=== PATIENT | female | born 1990 | race Caucasian/White ===

== ENCOUNTER 2018-02-09 11:53 | Emergency (ER) | payer OTHER ==
[2018-02-09] MEDS ORDERED: D50W 25 GM/50 ML SYRINGE IV ONE (12:31)
--- NOTE | 2018-02-09 12:32 | RAD REPORT ---
EXAM DESCRIPTION: CT - Ct Stroke Brain Wo Cont - 02/09/2018 12:22 pm CLINICAL HISTORY: Right-sided numbness and tingling, history of 8 week CLINICAL HISTORY: CT head September 2012 TECHNIQUE: Axial 5 millimeter thick images of the head were obtained without IV contrast. All CT scans are performed using dose optimization technique as appropriate and may include automated exposure control or mA/KV adjustment according to patient size. FINDINGS: No intracranial hemorrhage, mass, or cerebral edema. No acute infarction identifiable. No cortical edema or sulcal effacement. Ventricles are normal. [place] matter-white matter differentiation is preserved. No globe or orbital content abnormality seen. No abnormality in the transverse or superior sagittal s inus on a noncontrast CT study. Major venous sinuses are similar to the 2013 study. Visualized portions of the mastoid air cells, paranasal sinuses, and orbits are unremarkable. Findings telephoned to Dr. Kunz 12:27 p.m. IMPRESSION: No CT evidence of acute intracranial process.
--- NOTE | 2018-02-09 12:43 | RAD REPORT ---
EXAM DESCRIPTION: RAD - Chest Single View - 02/09/2018 12:38 pm CLINICAL HISTORY: Code stroke chest film COMPARISON: September 2012 TECHNIQUE: AP portable chest image was obtained 1224 hours . FINDINGS: Lungs are clear. Heart and vasculature are normal. No measurable pleural effusion and no p neumothorax. No gross bony abnormality seen. No acute aortic findings suspected. IMPRESSION: No acute cardiopulmonary process. No significant change from comparison.
[2018-02-09 12:46] LABS: Absolute Lymphocytes (CBC) 2.2 K/uL (0.7-4.9); Absolute Monocytes 0.6 K/uL (0.1-1.3); Absolute Neutrophil 6.5 K/uL (1.8-8.0); Basophils % 0.3 % (0-1.3); Eosinophils % 0.4 % (0-4.4); Hematocrit 38.3 % (36.0-45.0); Lymphocytes % 23.4 % (15.3-44.8); MCH 30.5 pg (27.0-35.0); MCV 85.3 fL (80-100); MPV 9.7 fL (7.6-11.3); Monocytes % 6.2 % (3.3-12.3)
[2018-02-09 12:58] LABS: Protime INR 1.05
[2018-02-09 13:10] LABS: BUN Blood Urea Nitrogen 9 mg/dL (7-18); Bicarbonate 25 mmol/L (21-32); Glucose Level 88 mg/dL (74-106); Potassium 3.1 mmol/L (3.5-5.1); Sodium Level 138 mmol/L (136-145)
[2018-02-09] MEDS ORDERED: THIAMINE 200 MG/2 ML INJ ONE (13:37)
[2018-02-09] MEDS ORDERED: NA CHLORIDE 0.9% 1,000 ML ONE (13:37)
[2018-02-09 13:50] LABS: Urine Blood NEGATIVE (NEG); Urine Glucose TRACE (NEG); Urine Protein NEGATIVE (NEG)
--- NOTE | 2018-02-09 14:17 | RAD REPORT ---
EXAM DESCRIPTION: MRI - Brain Wo Cont - 02/09/2018 2:10 pm CLINICAL HISTORY: Left arm numbness COMPARISON: 02/10/[address] TECHNIQUE: Axial, sagittal, and coronal magnetic images of the brain were obtained. Contrast was not requested FINDINGS: No abnormal signal is present within the brain. Diffusion-weighted/ADC mapping does not reveal evidence of acute infarction. The ventricles are normal caliber. An extra-axial fluid collection is not present The sinuses and mastoids are clear. IMPRESSION: Unremarkable unenhanced brain MRI
--- NOTE | 2018-02-09 14:35 | ER ---
Nurse's Notes [facility] Name: Jimi Rivera Age: 27 yrs Sex: Female : 1990 Arrival Date: 02/09/2018 Time: 11:55 Bed 5 Private MD: Diagnosis: related conditions, unspecified, first trimester;Hypoglycemia, unspecified;Hypokalemia Presentation: 02/09 12:06 Presenting complaint: Patient states: left arm numbness and numbness to left side of aa5 face. Pt states "the first thing I noticed was that I was seeing brightness with my right eye and when I tried to write I couldn't think of the letters to write them down". Pt reports being 8 weeks . No arm drift noted in triage, microbiological lab technician equal and strong, no facial droop noted, pupils PERRLA. Transition of care: patient was not received from another setting of care. Onset of symptoms was February 09, 2018 at 10:45. Risk Assessment: Do you want to hurt yourself or someone else? Patient reports no desire to harm self or others. Initial Sepsis Screen: Does the patient meet any 2 criteria? No. Patient's initial sepsis screen is negative. Does the patient have a suspected source of infection? No. Patient's initial sepsis screen is negative. Care prior to arrival: None. 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 - Social history:: Smoking status: Patient/guardian denies using tobacco. - Ebola Screening: : No symptoms or risks identified at this time. Screenin:37 Abuse screen: Denies threats or abuse. Denies injuries from another. Nutritional hb screening: No deficits noted. Tuberculosis screening: No symptoms or risk factors identified. Fall Risk Total Levy Fall Scale indicates Low Risk Score (25-44 pts). Fall prevention measures have been instituted. Side Rails Up X 2 Frequent Obs/Assesments occuring As available Patient and Family Educated on Fall Prevention Program and strategies. Assessment: 12:14 Reassessment: Pt to CT. hb 12:14 Reassessment: Code Stroke called. hb 12:24 Reassessment: Pt returned from CT. hb 12:25 Reassessment: EKG at bedside. hb 12:26 Reassessment: Dr. Kunz at bedside. hb 12:27 Reassessment: Accucheck 44, Dr. Kunz notified at bedside. hb 12:28 Reassessment: CT negative. iw 12:28 Reassessment: 05/20 amp dextrose administered as ordered. hb 12:30 Reassessment: labs sent with purple code stroke stickers. hb 12:31 General: Appears in no apparent distress. Behavior is cooperative, anxious. Pain: hb Denies pain. Neuro: Level of Consciousness is awake, alert, obeys commands, Oriented to person, place, time, situation, Radiology Resident are equal bilaterally Moves all extremities. Gait is steady, Speech is normal, Facial symmetry appears normal, Pupils are PERRLA, Intact Reports aphasia PURCHASER. Cardiovascular: Heart tones S1 S2 present Capillary refill < 3 seconds Patient's skin is warm and dry. Respiratory: Airway is patent Trachea midline Respiratory effort is even, unlabored, Respiratory pattern is regular, symmetrical, Breath sounds are clear bilaterally. GI: No signs and/or symptoms were reported involving the gastrointestinal system. : No signs and/or symptoms were reported regarding the genitourinary system. EENT: No signs and/or symptoms were reported regarding the EENT system. Derm: Skin is intact, is healthy with good turgor, Skin is pink, warm \\T\\ dry. Musculoskeletal: No signs and/or symptoms reported regarding the musculoskeletal system. 12:55 Reassessment: Patient appears in no apparent distress at this time. Patient and/or tw2 family updated on plan of care and expected duration. Pain level reassessed. Patient is alert, oriented x 3, equal unlabored respirations, skin warm/dry/pink. 13:45 Reassessment: Patient appears in no apparent distress at this time. Patient and/or hb family updated on plan of care and expected duration. Pain level reassessed. Patient is alert, oriented x 3, equal unlabored respirations, skin warm/dry/pink. Vital Signs: 12:09 BP 123 / 80; Pulse 108; Resp 16 S; Temp 99.4(TE); Pulse Ox 100% on R/A; Weight 65.77 kg aa5 (R); Height 5 ft. 2 in. (157.48 cm) (R); Pain 0/10; 12:55 BP 117 / 78; Pulse 92; Resp 16; Pulse Ox 100% on R/A; tw2 13:50 BP 105 / 73; Pulse 88; Resp 15; Pulse Ox 100% on R/A; hb 12:09 Body Mass Index 26.52 (65.77 kg, 157.48 cm) aa5 NIH Stroke Scale Scores: 12:38 NIHSS Score: 0 hb 13:20 NIHSS Score: 0 aicha 14:35 NIHSS Score: 0 aicha ED Course: 11:55 Patient arrived in ED. mr 12:09 Triage completed. aa5 12:09 Arm band placed on. aa5 12:15 Jordon Kunz MD is Attending Physician. aicha 12:24 CT Stroke Brain w/o Contrast In Process Unspecified. EDMS 12:27 Initial lab(s) drawn, by me, sent to lab. Inserted saline lock: 20 gauge in left 3 antecubital area, using aseptic technique. Blood collected. 12:29 Mari Silva, RN is Primary Nurse. hb 12:31 Patient has correct armband on for positive identification. Placed in gown. Bed in low hb position. Call light in reach. Side rails up X 1. child monitor on. Pulse ox on. NIBP on. 12:36 X-ray completed. Portable x-ray completed in exam room. Patient tolerated procedure sw well. 12:38 Stroke CXR 1 View In Process Unspecified. EDMS 12:43 Urine collected: clean catch specimen, cloudy, jojo colored. dh3 12:48 Patient moved to MRI with customer account technician at this time. tw2 13:19 Radiology exam delayed due to lab results not completed at this time. (HCG). aa4 13:58 Patient moved to MRI via wheelchair. ka 13:58 ABO Rh and HCGQ drawn by me and sent to lab. dh3 14:02 Brain Wo Cont In Process Unspecified. EDMS 14:34 Emma Weiner MD is Referral Physician. aicha 14:36 US Transvaginal Ob In Process Unspecified. EDMS 15:10 No provider procedures requiring assistance completed. IV discontinued, intact, hb bleeding controlled, No redness/swelling at site. Pressure dressing applied. Administered Medications: 12:28 Drug: D50W 25 ml Route: IVP; Site: left antecubital; hb 13:00 Follow up: Response: No adverse reaction hb 12:40 Drug: NS 0.9% 1000 ml Route: IV; Rate: 1 bolus; Site: left antecubital; hb 13:45 Follow up: Response: No adverse reaction; IV Status: Completed infusion hb 12:40 Drug: foLIC Acid 1 mg Route: IVPB; Site: left antecubital; hb 12:45 Follow up: Response: No adverse reaction; IV Status: Completed infusion hb Point of Care Testing: Blood Glucose: 12:51 Blood Glucose: 120 mg/dL; tw2 Ranges: Outcome: 14:34 Discharge ordered by MD. aicha 15:20 Discharged to home ambulatory, with significant other. hb 15:20 Condition: stable 15:20 Discharge instructions given to patient, Instructed on discharge instructions, follow up and referral plans. medication usage, Demonstrated understanding of instructions, follow-up care, medications, Prescriptions given X 1. 15:30 Patient left the ED. tw2 NIH Stroke Scale - NIH Stroke Score Date: 02/09/2018 Time: 12:38 Total Score = 0 1a. Level of Consciousness (LOC) - 0(Alert) 1b. Level of Consciousness (LOC) (Year \\T\\ Age) - 0(Both) 1c. LOC Commands (Open \\T\\ Closes Eyes/Optic Fibre Drawer) - 0(Both) 2. Best Gaze (Lateral Gaze Paresis) - 0(Normal) 3. Visual Field Loss - 0(No visual loss) 4. Facial Palsy - 0(Normal) 5a. Left Arm: Motor (10-second hold) - 0(No drift) 5b. Right Arm: Motor (10-second hold) - 0(No drift) 6a. Left Leg: Motor (5-second hold - always test supine) - 0(No drift) 6b. Right Leg: Motor (5-second hold - always test supine) - 0(No drift) 7. Limb Ataxia (finger/nose \\T\\ heel/kim - test with eyes open) - 0(Absent) 8. Sensory Loss (pinprick arms/legs/face) - 0(Normal) 9. Best Language: Aphasia (description/naming/reading) - 0(No aphasia) 10. Dysarthria (speech clarity - read or repeat words) - 0(Normal) 11. Extinction and Inattention (visual/tactile/auditory/spatial/personal) - 0(No abnormality) Initials: NIH Stroke Scale - NIH Stroke Score Date: 02/09/2018 Time: 13:20 Total Score = 0 1a. Level of Consciousness (LOC) - 0(Alert) 1b. Level of Consciousness (LOC) (Year \\T\\ Age) - 0(Both) 1c. LOC Commands (Open \\T\\ Closes Eyes/Optic Fibre Drawer) - 0(Both) 2. Best Gaze (Lateral Gaze Paresis) - 0(Normal) 3. Visual Field Loss - 0(No visual loss) 4. Facial Palsy - 0(Normal) 5a. Left Arm: Motor (10-second hold) - 0(No drift) 5b. Right Arm: Motor (10-second hold) - 0(No drift) 6a. Left Leg: Motor (5-second hold - always test supine) - 0(No drift) 6b. Right Leg: Motor (5-second hold - always test supine) - 0(No drift) 7. Limb Ataxia (finger/nose \\T\\ heel/kim - test with eyes open) - 0(Absent) 8. Sensory Loss (pinprick arms/legs/face) - 0(Normal) 9. Best Language: Aphasia (description/naming/reading) - 0(No aphasia) 10. Dysarthria (speech clarity - read or repeat words) - 0(Normal) 11. Extinction and Inattention (visual/tactile/auditory/spatial/personal) - 0(No abnormality) Initials: [facility] NIH Stroke Scale - NIH Stroke Score Date: 02/09/2018 Time: 14:35 Total Score = 0 1a. Level of Consciousness (LOC) - 0(Alert) 1b. Level of Consciousness (LOC) (Year \\T\\ Age) - 0(Both) 1c. LOC Commands (Open \\T\\ Closes Eyes/Optic Fibre Drawer) - 0(Both) 2. Best Gaze (Lateral Gaze Paresis) - 0(Normal) 3. Visual Field Loss - 0(No visual loss) 4. Facial Palsy - 0(Normal) 5a. Left Arm: Motor (10-second hold) - 0(No drift) 5b. Right Arm: Motor (10-second hold) - 0(No drift) 6a. Left Leg: Motor (5-second hold - always test supine) - 0(No drift) 6b. Right Leg: Motor (5-second hold - always test supine) - 0(No drift) 7. Limb Ataxia (finger/nose \\T\\ heel/kim - test with eyes open) - 0(Absent) 8. Sensory Loss (pinprick arms/legs/face) - 0(Normal) 9. Best Language: Aphasia (description/naming/reading) - 0(No aphasia) 10. Dysarthria (speech clarity - read or repeat words) - 0(Normal) 11. Extinction and Inattention (visual/tactile/auditory/spatial/personal) - 0(No abnormality) Initials: aicha Signatures: Dispatcher [employer] EDMS Jordon Kunz MD MD cha Rivera, Maria mr Mary Ann Vidales, RN JAMILA Monica Molina aa4 Mariaa Saavedra RN RN aa5 Traci Sams Katelyn ka Baxter, Heather, RN RN hb Wise, Tara, RN RN 2 Esther Guzman [facility] Corrections: (The following items were deleted from the chart) 12:34 12:24 Reassessment: Pt to CT hb hb 12:37 12:22 Reassessment: Pt to CT hb hb
--- NOTE | 2018-02-09 14:35 | EDPHYS ---
Physician Documentation [facility] Name: Jimi Rivera Age: 27 yrs Sex: Female : 1990 Arrival Date: 02/09/2018 Time: 11:55 Bed 5 Private MD: ED Physician Jordon Kunz HPI: 02/09 12:41 This 27 yrs old Female presents to ER via Ambulatory with complaints of aicha Vision Problem, Confusion, Arm weakness. 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 - Social history:: Smoking status: Patient/guardian denies using tobacco. - Ebola Screening: : No symptoms or risks identified at this time. ROS: 12:42 Constitutional: Negative for fever, chills, and weight loss, Eyes: Negative for injury, aicha pain, redness, and discharge, ENT: Negative for injury, pain, and discharge, Neck: Negative for injury, pain, and swelling, Cardiovascular: Negative for chest pain, palpitations, and edema, Respiratory: Negative for shortness of breath, cough, wheezing, and pleuritic chest pain, Abdomen/GI: Negative for abdominal pain, nausea, vomiting, diarrhea, and constipation, Back: Negative for injury and pain, : Negative for injury, bleeding, discharge, and swelling, MS/Extremity: Negative for injury and deformity, Skin: Negative for injury, rash, and discoloration, Psych: Negative for depression, anxiety, suicide ideation, homicidal ideation, and hallucinations, Allergy/Immunology: Negative for hives, rash, and allergies, Endocrine: Negative for neck swelling, polydipsia, polyuria, polyphagia, and marked weight changes, Hematologic/Lymphatic: Negative for swollen nodes, abnormal bleeding, and unusual bruising. 12:42 Neuro: Positive for altered mental status, dizziness, tingling, of the right arm. Exam: 12:42 Radiologist reports: neg, nad, dr schneider [facility] 12:42 Constitutional: This is a well developed, well nourished patient who is awake, alert, and in no acute distress. Head/Face: Normocephalic, atraumatic. Eyes: Pupils equal round and reactive to light, extra-ocular motions intact. Lids and lashes normal. Conjunctiva and sclera are non-icteric and not injected. Cornea within normal limits. Periorbital areas with no swelling, redness, or edema. ENT: Nares patent. No nasal discharge, no septal abnormalities noted. Tympanic membranes are normal and external auditory canals are clear. Oropharynx with no redness, swelling, or masses, exudates, or evidence of obstruction, uvula midline. Mucous membranes moist. Neck: Trachea midline, no thyromegaly or masses palpated, and no cervical lymphadenopathy. Supple, full range of motion without nuchal rigidity, or vertebral point tenderness. No Meningismus. Chest/axilla: Normal chest wall appearance and motion. Nontender with no deformity. No lesions are appreciated. Cardiovascular: Regular rate and rhythm with a normal S1 and S2. No gallops, murmurs, or rubs. Normal PMI, no JVD. No pulse deficits. Respiratory: Lungs have equal breath sounds bilaterally, clear to auscultation and percussion. No rales, rhonchi or wheezes noted. No increased work of breathing, no retractions or nasal flaring. Abdomen/GI: Soft, non-tender, with normal bowel sounds. No distension or tympany. No guarding or rebound. No evidence of tenderness throughout. Back: No spinal tenderness. No costovertebral tenderness. Full range of motion. Female : Normal external genitalia. Skin: Warm, dry with normal turgor. Normal color with no rashes, no lesions, and no evidence of cellulitis. MS/ Extremity: Pulses equal, no cyanosis. Neurovascular intact. Full, normal range of motion. Psych: Awake, alert, with orientation to person, place and time. Behavior, mood, and affect are within normal limits. 12:42 Neuro: Orientation: is normal, appropriate for stated age, no acute changes, Mentation: is normal, appropriate for stated age, no acute changes, Memory: is normal, appropriate for stated age, no acute changes, Cranial nerves: grossly normal, is grossly normal based on the patient's age, no acute changes, Cerebellar function: is grossly normal, is grossly normal based on the patient's age, no acute changes, Motor: is normal, is grossly normal based on the patient's age, no acute changes, moves all fours, strength is normal, strength is 5/5 in all extremities, Sensation: is normal, no obvious gross deficits, appropriate no acute changes, Gait: is steady, appropriate for age, Deep tendon reflexes are 2+ (normal) in the bilateral brachioradialis, bicep, tricep and patellar and Achilles tendons, seizure activity, is not displayed by the patient. 14:50 : dr satish james, discussed usg findings. [facility] Vital Signs: 12:09 BP 123 / 80; Pulse 108; Resp 16 S; Temp 99.4(TE); Pulse Ox 100% on R/A; Weight 65.77 kg aa5 (R); Height 5 ft. 2 in. (157.48 cm) (R); Pain 0/10; 12:55 BP 117 / 78; Pulse 92; Resp 16; Pulse Ox 100% on R/A; tw2 13:50 BP 105 / 73; Pulse 88; Resp 15; Pulse Ox 100% on R/A; hb 12:09 Body Mass Index 26.52 (65.77 kg, 157.48 cm) aa5 NIH Stroke Scale Scores: 12:38 NIHSS Score: 0 hb 13:20 NIHSS Score: 0 aicha 14:35 NIHSS Score: 0 aicha MDM: 12:15 Patient medically screened. [facility] 12:44 Data reviewed: vital signs, nurses notes, lab test result(s), EKG, radiologic studies, [facility] CT scan, plain films. 02/09 12:22 Order name: Basic Metabolic Panel; Complete Time: 14:14 02/09 12:22 Order name: CBC with Diff; Complete Time: 14:14 02/09 12:22 Order name: Protime (+inr); Complete Time: 14:14 02/09 12:22 Order name: Ptt, Activated; Complete Time: 14:14 02/09 12:29 Order name: CRP; Complete Time: 14:14 [facility] 02/09 12:29 Order name: Sed Rate; Complete Time: 14:14 [facility] 02/09 12:17 Order name: CT Stroke Brain w/o Contrast; Complete Time: 14:14 02/09 12:29 Order name: Urine Culture [facility] 02/09 12:53 Order name: Glucose, Ancillary Testing; Complete Time: 14:14 EDMS 02/09 12:53 Order name: Glucose, Ancillary Testing; Complete Time: 14:14 EDOR 02/09 12:56 Order name: Urine Dipstick--Ancillary (enter results); Complete Time: 14:14 02/09 12:56 Order name: Urine --Ancillary (enter results); Complete Time: 14:14 bd 02/09 13:12 Order name: Quantitative Hcg; Complete Time: 14:41 [facility] 02/09 13:12 Order name: Abo/rh Typing [facility] 02/09 12:22 Order name: Stroke CXR 1 View; Complete Time: 14:14 iw 02/09 12:22 Order name: EKG; Complete Time: 12:23 iw 02/09 12:22 Order name: Accucheck; Complete Time: 12: 02/09 12:22 Order name: Cardiac monitoring; Complete Time: 12: 02/09 12:22 Order name: EKG - Nurse/Tech; Complete Time: 12: 02/09 12:22 Order name: IV Saline Lock; Complete Time: 12: 02/09 12:22 Order name: Labs collected and sent; Complete Time: 12: 02/09 12:22 Order name: NPO; Complete Time: 12: 02/09 12:22 Order name: O2 Per Protocol; Complete Time: 12: 02/09 13:12 Order name: US Transvaginal Ob [facility] 02/09 14:02 Order name: Brain Wo Cont; Complete Time: 14:33 EDOR 02/09 12:22 Order name: O2 Sat Monitoring; Complete Time: 12: 02/09 12:22 Order name: Stroke Swallow Screen; Complete Time: 13:32 02/09 12:29 Order name: Urine Dipstick-Ancillary (obtain specimen); Complete Time: 12:43 [facility] Administered Medications: 12:28 Drug: D50W 25 ml Route: IVP; Site: left antecubital; hb 13:00 Follow up: Response: No adverse reaction hb 12:40 Drug: NS 0.9% 1000 ml Route: IV; Rate: 1 bolus; Site: left antecubital; hb 13:45 Follow up: Response: No adverse reaction; IV Status: Completed infusion hb 12:40 Drug: foLIC Acid 1 mg Route: IVPB; Site: left antecubital; hb 12:45 Follow up: Response: No adverse reaction; IV Status: Completed infusion hb Point of Care Testing: Blood Glucose: 12:51 Blood Glucose: 120 mg/dL; tw2 Ranges: Critical Glucose Levels:Adult <50 mg/dl or >400 mg/dl <40 mg/dl or >180 mg/dl Disposition: 02/09/18 14:34 Discharged to Home. Impression: related conditions, unspecified, first trimester, Hypoglycemia, unspecified, Hypokalemia. - Condition is Stable. - Discharge Instructions: Potassium Content of Foods, Hypoglycemia, First Trimester of , [id number], First Trimester of , Pelvic Rest, Hypoglycemia, [id number]. - Prescriptions for Vitamin 27- 0.8 mg Oral Tablet - take 1 tablet by ORAL route once daily; 30 tablet. - Medication Reconciliation Form, Thank You Letter, Antibiotic Education, Prescription Opioid Use form. - Follow up: Mini Rekhi; When: 2 - 3 days; Reason: Recheck today's complaints, Continuance of care, Re-evaluation by your physician. - Problem is new. - Symptoms have improved. NIH Stroke Scale - NIH Stroke Score Date: 02/09/2018 Time: 12:38 Total Score = 0 1a. Level of Consciousness (LOC) - 0(Alert) 1b. Level of Consciousness (LOC) (Year \T\ Age) - 0(Both) 1c. LOC Commands (Open \T\ Closes Eyes/Shuttleless Loom Weaver) - 0(Both) 2. Best Gaze (Lateral Gaze Paresis) - 0(Normal) 3. Visual Field Loss - 0(No visual loss) 4. Facial Palsy - 0(Normal) 5a. Left Arm: Motor (10-second hold) - 0(No drift) 5b. Right Arm: Motor (10-second hold) - 0(No drift) 6a. Left Leg: Motor (5-second hold - always test supine) - 0(No drift) 6b. Right Leg: Motor (5-second hold - always test supine) - 0(No drift) 7. Limb Ataxia (finger/nose \T\ heel/kim - test with eyes open) - 0(Absent) 8. Sensory Loss (pinprick arms/legs/face) - 0(Normal) 9. Best Language: Aphasia (description/naming/reading) - 0(No aphasia) 10. Dysarthria (speech clarity - read or repeat words) - 0(Normal) 11. Extinction and Inattention (visual/tactile/auditory/spatial/personal) - 0(No abnormality) Initials: NIH Stroke Scale - NIH Stroke Score Date: 02/09/2018 Time: 13:20 Total Score = 0 1a. Level of Consciousness (LOC) - 0(Alert) 1b. Level of Consciousness (LOC) (Year \T\ Age) - 0(Both) 1c. LOC Commands (Open \T\ Closes Eyes/Shuttleless Loom Weaver) - 0(Both) 2. Best Gaze (Lateral Gaze Paresis) - 0(Normal) 3. Visual Field Loss - 0(No visual loss) 4. Facial Palsy - 0(Normal) 5a. Left Arm: Motor (10-second hold) - 0(No drift) 5b. Right Arm: Motor (10-second hold) - 0(No drift) 6a. Left Leg: Motor (5-second hold - always test supine) - 0(No drift) 6b. Right Leg: Motor (5-second hold - always test supine) - 0(No drift) 7. Limb Ataxia (finger/nose \T\ heel/kim - test with eyes open) - 0(Absent) 8. Sensory Loss (pinprick arms/legs/face) - 0(Normal) 9. Best Language: Aphasia (description/naming/reading) - 0(No aphasia) 10. Dysarthria (speech clarity - read or repeat words) - 0(Normal) 11. Extinction and Inattention (visual/tactile/auditory/spatial/personal) - 0(No abnormality) Initials: [facility] NIH Stroke Scale - NIH Stroke Score Date: 02/09/2018 Time: 14:35 Total Score = 0 1a. Level of Consciousness (LOC) - 0(Alert) 1b. Level of Consciousness (LOC) (Year \T\ Age) - 0(Both) 1c. LOC Commands (Open \T\ Closes Eyes/Shuttleless Loom Weaver) - 0(Both) 2. Best Gaze (Lateral Gaze Paresis) - 0(Normal) 3. Visual Field Loss - 0(No visual loss) 4. Facial Palsy - 0(Normal) 5a. Left Arm: Motor (10-second hold) - 0(No drift) 5b. Right Arm: Motor (10-second hold) - 0(No drift) 6a. Left Leg: Motor (5-second hold - always test supine) - 0(No drift) 6b. Right Leg: Motor (5-second hold - always test supine) - 0(No drift) 7. Limb Ataxia (finger/nose \T\ heel/kim - test with eyes open) - 0(Absent) 8. Sensory Loss (pinprick arms/legs/face) - 0(Normal) 9. Best Language: Aphasia (description/naming/reading) - 0(No aphasia) 10. Dysarthria (speech clarity - read or repeat words) - 0(Normal) 11. Extinction and Inattention (visual/tactile/auditory/spatial/personal) - 0(No abnormality) Initials: aicha Signatures: Dispatcher [employer] [facility] Jordon Kunz MD MD cha Williams, Irene RN JAMILA iw Mariaa Saavedra RN RN aa5 Mari Silva RN RN Cheryl De Souza RN RN tw2 Corrections: (The following items were deleted from the chart) 14:01 12:30 MR STROKE PROTOCOL+MRI.RAD.BRZ ordered. [facility] 15:30 14:34 02/09/2018 14:34 Discharged to Home. Impression: related tw2 conditions, unspecified, first trimester; Hypoglycemia, unspecified; Hypokalemia. Condition is Stable. Discharge Instructions: Hypoglycemia, First Trimester of , [id number], First Trimester of , Hypoglycemia, [id number]. Prescriptions for Vitamin 27-0.8 mg Oral Tablet - take 1 tablet by ORAL route once daily; 30 tablet. and Forms are Medication Reconciliation Form, Thank You Letter, Antibiotic Education, Prescription Opioid Use. Follow up: Mini Rekhi; When: 2 - 3 days; Reason: Recheck today's complaints, Continuance of care, Re-evaluation by your physician. Problem is new. Symptoms have improved. aicha
--- NOTE | 2018-02-09 15:12 | RAD REPORT ---
EXAM DESCRIPTION: US - Transvaginal OB - 02/09/2018 2:36 pm CLINICAL HISTORY: with abdominal pain COMPARISON: None. FINDINGS: The uterus measures 9 x 6 x 7 centimeters. A gestational sac is present within the endome trium. Within this is a yolk sac and pole with a crown-rump length 1.9 centimeters. Cardiac act ivity 175 beats per minute. Small subchorionic bleeds are present. Largest measures 12 millimeters The ovaries are normal in size and echotexture. No significant free fluid is seen. IMPRESSION: Single live intrauterine with an estimated gestational age 8 weeks 3 days 07/2018 Small subchorionic bleeds
[2018-02-09 15:35] VITALS: TEMP 99.4; O2SAT 100
[2018-02-09 15:37] VITALS: BP 105/73
--- NOTE | 2018-02-09 15:40 | EKG ---
Test Date: 2018-02-09 Test Time: 12:27:37 Saw Sharpener: ELIU MEASUREMENT RESULTS: Intervals: Rate: 112 WI: 132 QRSD: 84 QT: 342 QTc: 466 [place]: P: 66 WI: 132 QRS: 55 T: 50 INTERPRETIVE STATEMENTS: Sinus tachycardia Otherwise normal ECG No previous ECG available for comparison Electronically Signed On 02-09-18 15:39:20 CDT by Juvencio Mcadams
== END 2018-02-09 15:30 | disposition home or self-care (01) ==
LOC: ER 11:53
DX: E16.2 Hypoglycemia, unspecified (principal); E87.6 Hypokalemia; Z3A.08 8 weeks gestation of pregnancy
CPT/HCPCS: 36415; 70450; 70551; 71045; 76817; 80048; 81003; 81025; 82962; 84702; 85025; 85610; 85652; 85730; 86140; 86900; 86901; 87086; 87088; 93005; 96361; 96374; 96375; 99285; J3411; J7030

== ENCOUNTER 2018-04-25 17:47 | Emergency (ER) | payer OTHER ==
--- NOTE | 2018-04-25 18:17 | ER ---
Nurse's Notes [facility] Name: Jimi Rivera Age: 28 yrs Sex: Female : 1990 Arrival Date: 04/25/2018 Time: 17:50 Bed 24 Private MD: Beau Sanchez Diagnosis: Nonobstructive reflux-associated chronic pyelonephritis Presentation: 04/25 17:53 Presenting complaint: Patient states: left hip pain started today. Urine started sv becoming blood tinged, c/o nausea and flank tenderness. Pt is 19 wks . Transition of care: patient was not received from another setting of care. Onset of symptoms was April 25, 2018. Care prior to arrival: None. 17:53 Method Of Arrival: Ambulatory sv 17:53 Acuity: JULIO 3 sv 18:00 Risk Assessment: Do you want to hurt yourself or someone else? Patient reports no ls4 desire to harm self or others. 18:00 Initial Sepsis Screen: Does the patient meet any 2 criteria? No. Patient's initial ls4 sepsis screen is negative. Does the patient have a suspected source of infection? No. Patient's initial sepsis screen is negative. Triage Assessment: 17:56 General: Appears in no apparent distress. uncomfortable, well developed, Behavior is sv calm, cooperative, appropriate for age. Pain: Complains of pain in posterior aspect of left lateral abdomen and anterior aspect of left lateral abdomen. Neuro: Level of Consciousness is awake, alert, obeys commands, Oriented to person, place, time, situation, Moves all extremities. Full function Gait is steady. Respiratory: Respiratory effort is even, unlabored, Respiratory pattern is regular, symmetrical. : Reports pain in left flank(s), with urination. LENS ENGRAVER: 18:31 currently ls4 Historical: - Allergies: 17:54 NKA; sv - PMHx: 17:54 Kidney stones; Migraines; RSD right leg; sv - PSHx: 17:54 knee scope; shoulder scope; Lithotripsy; sv - Immunization history:: Adult Immunizations unknown. - Social history:: Smoking status: Patient/guardian denies using tobacco, never smoked. - Ebola Screening: : No symptoms or risks identified at this time. Screenin:30 Abuse screen: Denies threats or abuse. Nutritional screening: No deficits noted. ls4 Tuberculosis screening: No symptoms or risk factors identified. Fall Risk None identified. Assessment: 18:29 General: Appears in no apparent distress. Pain: Complains of pain in abdomen and ls4 anterior aspect of left lateral abdomen and posterior aspect of left lateral abdomen Pain currently is 5 out of 10 on a pain scale. Neuro: No deficits noted. Cardiovascular: No deficits noted. Respiratory: No deficits noted. GI: No deficits noted. : Reports burning with urination. Derm: No deficits noted. Musculoskeletal: No deficits noted. Vital Signs: 17:54 BP 117 / 76; Pulse 81; Resp 20; Temp 98.3; Pulse Ox 99% ; Weight 70.31 kg; Height 5 ft. sv 2 in. (157.48 cm); 17:54 Body Mass Index 28.35 (70.31 kg, 157.48 cm) sv ED Course: 17:50 Patient arrived in ED. mr 17:51 Beau Sanchez MD is Private Physician. mr 17:54 Triage completed. sv 17:56 Arm band placed on. sv 17:59 [facility] nh 17:59 Jordon Kunz MD is Attending Physician. nh 18:00 Patient has correct armband on for positive identification. Bed in low position. Call ls4 light in reach. Side rails up X 1. 18:00 No provider procedures requiring assistance completed. Patient did not have IV access ls4 during this emergency room visit. 18:24 Louise Durbin, JAMILA is Primary Nurse. ls4 Administered Medications: No medications were administered Outcome: 18:17 Discharge ordered by MD. ut 18:30 Condition: stable ls4 18:32 Discharged to home ambulatory. ls4 18:32 Discharge instructions given to patient, Instructed on discharge instructions, follow up and referral plans. medication usage, Demonstrated understanding of instructions, follow-up care, medications. 18:33 Patient left the ED. ls4 Signatures: Linda Garcia RN RN Amalia Powell FNP [facility] Louise Durbin RN RN ls4 Corrections: (The following items were deleted from the chart) 17:56 17:53 Presenting complaint: Patient states: left hip pain started today. Urine started sv becoming blood tinged, nausea. sv 17:56 17:54 Pulse Ox 99%; Temp 98.3F; 70.31 kg; Height 5 ft. 2 in.; BMI: 28.3; sv sv 18:09 17:53 Presenting complaint: Patient states: left hip pain started today. Urine started sv becoming blood tinged, c/o nausea. Pt is 19 wks . sv
--- NOTE | 2018-04-25 18:17 | EDPHYS ---
Physician Documentation [facility] Name: Jimi Rivera Age: 28 yrs Sex: Female : 1990 Arrival Date: 04/25/2018 Time: 17:50 Bed 24 Private MD: Beau Sanchez ED Physician Jordon Kunz HPI: 04/25 18:11 This 28 yrs old Female presents to ER via Ambulatory with complaints of 19 nh wks , blood in urine, Flank Pain, Nausea. 18:11 Onset: The symptoms/episode began/occurred gradually. Associated signs and symptoms: nh Pertinent positives: abdominal pain. Modifying factors: The patient symptoms are alleviated by nothing, the patient symptoms are aggravated by nothing. The patient has not experienced similar symptoms in the past. The patient has not recently seen a physician. Patient reports left flank pain that come on somewhat suddenly with hematuria. ECONOMIC ADVISER: 18:31 currently ls4 Historical: - Allergies: 17:54 NKA; sv - PMHx: 17:54 Kidney stones; Migraines; RSD right leg; sv - PSHx: 17:54 knee scope; shoulder scope; Lithotripsy; sv - Immunization history:: Adult Immunizations unknown. - Social history:: Smoking status: Patient/guardian denies using tobacco, never smoked. - Ebola Screening: : No symptoms or risks identified at this time. ROS: 18:11 Constitutional: Negative for fever, chills, and weight loss, Eyes: Negative for injury, nh pain, redness, and discharge, ENT: Negative for injury, pain, and discharge, Neck: Negative for injury, pain, and swelling, Cardiovascular: Negative for chest pain, palpitations, and edema, Respiratory: Negative for shortness of breath, cough, wheezing, and pleuritic chest pain, Abdomen/GI: Negative for abdominal pain, nausea, vomiting, diarrhea, and constipation, Back: Negative for injury and pain, MS/Extremity: Negative for injury and deformity, Skin: Negative for injury, rash, and discoloration, Neuro: Negative for headache, weakness, numbness, tingling, and seizure, Psych: Negative for depression, anxiety, suicide ideation, homicidal ideation, and hallucinations, Allergy/Immunology: Negative for hives, rash, and allergies, Endocrine: Negative for neck swelling, polydipsia, polyuria, polyphagia, and marked weight changes, Hematologic/Lymphatic: Negative for swollen nodes, abnormal bleeding, and unusual bruising. 18:11 : Positive for urinary symptoms, flank pain, hematuria. Exam: 18:11 Constitutional: This is a well developed, well nourished patient who is awake, alert, nh and in no acute distress. Head/Face: Normocephalic, atraumatic. Eyes: Pupils equal round and reactive to light, extra-ocular motions intact. Lids and lashes normal. Conjunctiva and sclera are non-icteric and not injected. Cornea within normal limits. Periorbital areas with no swelling, redness, or edema. ENT: Nares patent. No nasal discharge, no septal abnormalities noted. Tympanic membranes are normal and external auditory canals are clear. Oropharynx with no redness, swelling, or masses, exudates, or evidence of obstruction, uvula midline. Mucous membranes moist. Neck: Trachea midline, no thyromegaly or masses palpated, and no cervical lymphadenopathy. Supple, full range of motion without nuchal rigidity, or vertebral point tenderness. No Meningismus. Chest/axilla: Normal chest wall appearance and motion. Nontender with no deformity. No lesions are appreciated. Cardiovascular: Regular rate and rhythm with a normal S1 and S2. No gallops, murmurs, or rubs. Normal PMI, no JVD. No pulse deficits. Respiratory: Lungs have equal breath sounds bilaterally, clear to auscultation and percussion. No rales, rhonchi or wheezes noted. No increased work of breathing, no retractions or nasal flaring. Abdomen/GI: Soft, non-tender, with normal bowel sounds. No distension or tympany. No guarding or rebound. No evidence of tenderness throughout. Skin: Warm, dry with normal turgor. Normal color with no rashes, no lesions, and no evidence of cellulitis. MS/ Extremity: Pulses equal, no cyanosis. Neurovascular intact. Full, normal range of motion. Neuro: Awake and alert, GCS 15, oriented to person, place, time, and situation. Cranial nerves II-XII grossly intact. Motor strength 5/5 in all extremities. Sensory grossly intact. Cerebellar exam normal. Normal gait. Psych: Awake, alert, with orientation to person, place and time. Behavior, mood, and affect are within normal limits. 18:11 Back: CVA tenderness, that is mild, is noted on the left. Vital Signs: 17:54 BP 117 / 76; Pulse 81; Resp 20; Temp 98.3; Pulse Ox 99% ; Weight 70.31 kg; Height 5 ft. sv 2 in. (157.48 cm); 17:54 Body Mass Index 28.35 (70.31 kg, 157.48 cm) sv MDM: 17:59 Patient medically screened. tn 18:11 Data reviewed: vital signs, nurses notes, lab test result(s), I have discussed the tn patient's presentation/case with the attending Emergency Department Physician; and as a result, I will discharge patient. Counseling: I had a detailed discussion with the patient and/or guardian regarding: lab results, the need for outpatient follow up, to return to the emergency department if symptoms worsen or persist or if there are any questions or concerns that arise at home. 04/25 18:05 Order name: Urine Dipstick--Ancillary (enter results) bd 04/25 18:05 Order name: Urine --Ancillary (enter results) bd Administered Medications: No medications were administered Disposition: 04/25/18 18:17 Discharged to Home. Impression: Nonobstructive reflux-associated chronic pyelonephritis. - Condition is Stable. - Discharge Instructions: Pyelonephritis, Adult. - Prescriptions for Macrobid 100 mg Oral Capsule - take 1 capsule by ORAL route every 12 hours for 10 days; 20 capsule. - Medication Reconciliation Form, Thank You Letter, Antibiotic Education, Prescription Opioid Use form. - Follow up: Private Physician; When: 1 - 2 days; Reason: Recheck today's complaints. - Problem is new. - Symptoms are unchanged. Addendum: 04/27/2018 06:29 Co-signature as Attending Physician, Jordon Kunz MD I agree with the assessment and c samson plan of care. Signatures: Dispatcher [employer] Linda Strickland, Jordon Young RN, MD MD cha Cronk, Niki, CREWMAN ARMOURED PERSONNEL CARRIER M113 CREWMAN ARMOURED PERSONNEL CARRIER M113 tn Louise Durbin RN RN ls4 Corrections: (The following items were deleted from the chart) 04/25 18:33 18:17 04/25/2018 18:17 Discharged to Home. Impression: Nonobstructive reflux-associated ls4 chronic pyelonephritis. Condition is Stable. Forms are Medication Reconciliation Form, Thank You Letter, Antibiotic Education, Prescription Opioid Use. Follow up: Private Physician; When: 1 - 2 days; Reason: Recheck today's complaints. Problem is new. Symptoms are unchanged. tn 18:33 18:33 04/25/2018 18:17 Discharged to Home. Impression: Nonobstructive reflux-associated ls4 chronic pyelonephritis. Condition is Stable. Discharge Instructions: Pyelonephritis, Adult. Prescriptions for Macrobid 100 mg Oral Capsule - take 1 capsule by ORAL route every 12 hours for 10 days; 20 capsule. and Forms are Medication Reconciliation Form, Thank You Letter, Antibiotic Education, Prescription Opioid Use. Follow up: Private Physician; When: 1 - 2 days; Reason: Recheck today's complaints. Problem is new. Symptoms are unchanged. ls4
[2018-04-25 18:38] VITALS: BP 117/76; TEMP 98.3; O2SAT 99
[2018-04-25 19:25] LABS: Urine Blood 2+ (NEG); Urine Glucose NEGATIVE (NEG); Urine Protein NEGATIVE (NEG)
== END 2018-04-25 18:33 | disposition home or self-care (01) ==
LOC: ER 17:47
DX: O23.02 Infections of kidney in pregnancy, second trimester (principal); N11.0 Nonobstructive reflux-associated chronic pyelonephritis; Z3A.19 19 weeks gestation of pregnancy
CPT/HCPCS: 81003; 81025; 99281

== ENCOUNTER 2018-04-26 09:03 | Emergency (ER) | payer OTHER ==
[2018-04-26] MEDS ORDERED: MORPHINE 2 MG/ML SYR ONE (09:54)
[2018-04-26] MEDS ORDERED: ONDANSETRON 4 MG/2 ML VIAL ONE (09:54)
[2018-04-26] MEDS ORDERED: NA CHLORIDE 0.9% 1,000 ML ONE (09:54)
[2018-04-26 10:07] LABS: Absolute Lymphocytes (CBC) 0.9 K/uL (0.7-4.9); Absolute Monocytes 0.4 K/uL (0.1-1.3); Absolute Neutrophil 10.6 K/uL (1.8-8.0); Eosinophils % 0.3 % (0-4.4); Hematocrit 37.7 % (36.0-45.0); Lymphocytes % 7.5 % (15.3-44.8); MCH 31.7 pg (27.0-35.0); MCV 88.5 fL (80-100); MPV 9.5 fL (7.6-11.3); Monocytes % 3.7 % (3.3-12.3); RBC Red Blood Cell Count 4.26 M/uL (3.86-4.86)
[2018-04-26] MEDS ORDERED: CEFTRIAXONE/SWI 1gm 1 GM/10 ML SYR ONE (10:13)
[2018-04-26 10:24] LABS: BUN Blood Urea Nitrogen 9 mg/dL (7-18); Bicarbonate 24 mmol/L (21-32); Glucose Level 91 mg/dL (74-106); Potassium 3.3 mmol/L (3.5-5.1); Sodium Level 140 mmol/L (136-145)
[2018-04-26 10:37] LABS: Platelet Estimate ADEQ; Urine White Blood Cell Casts OK
[2018-04-26 10:38] LABS: Blood Morphology Comment NOT SEEN (NOT SEEN)
--- NOTE | 2018-04-26 10:55 | RAD REPORT ---
EXAM DESCRIPTION: US - Renal Ultrasound-Limited - 04/26/2018 10:23 am CLINICAL HISTORY: PAIN COMPARISON: Abdomen Exam Limited dated 03/14/2017 FINDINGS: Ultrasound of only the left kidney was requested, limiting study. The left kidney measures 11.8 x 5.3 x 6.1 cm. No hydronephrosis, focal mass or perinephric fluid. The urinary bladder is incompletely distended without gross abnormality seen. IMPRESSION: Unremarkable left renal sonogram.
--- NOTE | 2018-04-26 11:24 | EDPHYS ---
Physician Documentation [facility] Name: Jimi Rivera Age: 28 yrs Sex: Female : 1990 Arrival Date: 04/26/2018 Time: 09:05 Bed 16 Private MD: Beau Sanchez ED Physician Jordon Kunz HPI: 04/26 09:38 This 28 yrs old Female presents to ER via Ambulatory with complaints of aicha Vomiting - Pyelonephritis. 09:38 The patient presents to the emergency department with nausea, vomiting, that is aicha continuous. Onset: The symptoms/episode began/occurred last night. Possible causes: unknown, . The symptoms are aggravated by nothing. The symptoms are alleviated by nothing. Associated signs and symptoms: The patient has no apparent associated signs or symptoms. Severity of symptoms: At their worst the symptoms were mild in the emergency department the symptoms are unchanged. The patient has not experienced similar symptoms in the past. Historical: - Allergies: 09:19 NKA; ss - PMHx: 09:19 Kidney stones; Migraines; RSD right leg; ss - PSHx: 09:19 knee scope; shoulder scope; Lithotripsy; ss - Immunization history:: Adult Immunizations up to date. - Social history:: Smoking status: Patient/guardian denies using tobacco. - Ebola Screening: : Patient denies exposure to infectious person Patient denies travel to an Ebola-affected area in the 21 days before illness onset. ROS: 09:39 Constitutional: Negative for fever, chills, and weight loss, Eyes: Negative for injury, aicha pain, redness, and discharge, ENT: Negative for injury, pain, and discharge, Neck: Negative for injury, pain, and swelling, Cardiovascular: Negative for chest pain, palpitations, and edema, Respiratory: Negative for shortness of breath, cough, wheezing, and pleuritic chest pain, : Negative for injury, bleeding, discharge, and swelling, MS/Extremity: Negative for injury and deformity, Skin: Negative for injury, rash, and discoloration, Neuro: Negative for headache, weakness, numbness, tingling, and seizure, Psych: Negative for depression, anxiety, suicide ideation, homicidal ideation, and hallucinations, Allergy/Immunology: Negative for hives, rash, and allergies, Endocrine: Negative for neck swelling, polydipsia, polyuria, polyphagia, and marked weight changes. 09:39 Abdomen/GI: Positive for nausea and vomiting, abdominal distension. 09:39 Back: Positive for flank pain, on the left. Exam: 09:39 Constitutional: This is a well developed, well nourished patient who is awake, alert, aicha and in no acute distress. Head/Face: Normocephalic, atraumatic. Eyes: Pupils equal round and reactive to light, extra-ocular motions intact. Lids and lashes normal. Conjunctiva and sclera are non-icteric and not injected. Cornea within normal limits. Periorbital areas with no swelling, redness, or edema. ENT: Nares patent. No nasal discharge, no septal abnormalities noted. Tympanic membranes are normal and external auditory canals are clear. Oropharynx with no redness, swelling, or masses, exudates, or evidence of obstruction, uvula midline. Mucous membranes moist. Neck: Trachea midline, no thyromegaly or masses palpated, and no cervical lymphadenopathy. Supple, full range of motion without nuchal rigidity, or vertebral point tenderness. No Meningismus. Chest/axilla: Normal chest wall appearance and motion. Nontender with no deformity. No lesions are appreciated. Cardiovascular: Regular rate and rhythm with a normal S1 and S2. No gallops, murmurs, or rubs. Normal PMI, no JVD. No pulse deficits. Respiratory: Lungs have equal breath sounds bilaterally, clear to auscultation and percussion. No rales, rhonchi or wheezes noted. No increased work of breathing, no retractions or nasal flaring. Back: No spinal tenderness. No costovertebral tenderness. Full range of motion. Skin: Warm, dry with normal turgor. Normal color with no rashes, no lesions, and no evidence of cellulitis. MS/ Extremity: Pulses equal, no cyanosis. Neurovascular intact. Full, normal range of motion. Neuro: Awake and alert, GCS 15, oriented to person, place, time, and situation. Cranial nerves II-XII grossly intact. Motor strength 5/5 in all extremities. Sensory grossly intact. Cerebellar exam normal. Normal gait. Psych: Awake, alert, with orientation to person, place and time. Behavior, mood, and affect are within normal limits. 09:39 Abdomen/GI: Inspection: gravid appearance, Bowel sounds: normal, Palpation: nontender, Liver: no appreciated palpable abnormalities, Hernia: not appreciated. Vital Signs: 09:19 BP 115 / 82; Pulse 98; Resp 17; Temp 97.0(TE); Pulse Ox 100% on R/A; Weight 70.31 kg; ss Height 5 ft. 2 in. (157.48 cm); Pain 6/10; 10:45 BP 113 / 75; Pulse 102; Resp 16 S; Pulse Ox 100% on R/A; Pain 8/10; jl7 11:48 BP 115 / 75; Pulse 94; Resp 16; Pulse Ox 100% on R/A; Pain 2/10; jl7 09:19 Body Mass Index 28.35 (70.31 kg, 157.48 cm) ss MDM: 09:18 Patient medically screened. [facility] 09:42 Data reviewed: vital signs, nurses notes, lab test result(s), radiologic studies, [facility] ultrasound. 04/26 09:38 Order name: Basic Metabolic Panel; Complete Time: 10:44 [facility] 04/26 09:38 Order name: CBC with Diff; Complete Time: 10:44 [facility] 04/26 09:38 Order name: Urine Culture [facility] 04/26 09:42 Order name: Blood Culture Adult (2) [facility] 04/26 10:15 Order name: CBC Smear Scan; Complete Time: 10:44 EDMS 04/26 10:15 Order name: Urine Dipstick--Ancillary (enter results) 04/26 09:38 Order name: US Rp Exam Limited: left renal; Complete Time: 11:19 [facility] 04/26 10:15 Order name: Urine --Ancillary (enter results) 04/26 09:38 Order name: IV Saline Lock; Complete Time: 11:03 [facility] 04/26 09:38 Order name: Labs collected and sent; Complete Time: 11:03 [facility] 04/26 09:38 Order name: NPO; Complete Time: 11:03 [facility] 04/26 09:38 Order name: Urine Dipstick-Ancillary (obtain specimen); Complete Time: 11:03 [facility] 04/26 09:38 Order name: FHT's; Complete Time: 11:03 [facility] Administered Medications: 09:45 Drug: NS 0.9% 1000 ml Route: IV; Rate: 1 bolus; Site: right antecubital; jl7 10:45 Follow up: IV Status: Completed infusion jl7 09:46 Drug: Zofran 4 mg Route: IVP; Site: right antecubital; jl7 10:11 Follow up: Response: No adverse reaction; Nausea is decreased jl7 10:50 Drug: Rocephin 1 grams Route: IV; Rate: calculated rate; Site: right antecubital; jl7 10:53 Follow up: Response: No adverse reaction; IV Status: Completed infusion jl7 10:55 Drug: morphine 2 mg Route: IVP; Site: right antecubital; jl7 11:03 Follow up: Response: No adverse reaction; Pain is decreased jl7 11:01 Not Given (Other Intervention Used): Rocephin - (cefTRIAXone) 1 grams IVPB once over 30 jl7 mins; (mix in 50 mL NS) 11:47 Drug: Potassium Effervescent Tablet 25 mEq Route: PO; jl7 11:47 Follow up: Response: Medication administered at discharge. jl7 Disposition: 04/26/18 11:23 Discharged to Home. Impression: Hematuria, related conditions, unspecified, second trimester, Hypokalemia. - Condition is Stable. - Discharge Instructions: Abdominal Pain During , Hematuria, Adult, Pelvic Rest, Hypokalemia. - Prescriptions for Diclegis 10- 10 mg Oral tablet,delayed release (DR/EC) - take 1 tablet by ORAL route 3 times per day and 2 tablets at bedtime; 60 tablet. Vitamin 27- 0.8 mg Oral Tablet - take 1 tablet by ORAL route once daily; 30 tablet. Tylenol- Codeine #3 300-30 mg Oral Tablet - take 2 tablets by ORAL route every 6 hours As needed; 20 tablet. Macrobid 100 mg Oral Capsule - take 1 capsule by ORAL route every 12 hours for 7 days; 14 capsule. - Medication Reconciliation Form, Thank You Letter, Antibiotic Education, Prescription Opioid Use form. - Follow up: Beau Sanchez MD; When: 2 - 3 days; Reason: Recheck today's complaints, Continuance of care, Re-evaluation by your physician. Follow up: Emma Weiner MD; When: Tomorrow; Reason: Recheck today's complaints, Continuance of care, Re-evaluation by your physician. - Problem is new. - Symptoms have improved. Signatures: Dispatcher [employer] Jordon Summers MD MD cha Smirch Kori, RN RN ss Elyse Ramirez RN RN jl7 Corrections: (The following items were deleted from the chart) 11: 11:04/26/2018 11:23 Discharged to Home. Impression: Hematuria; related aicha conditions, unspecified, second trimester. Condition is Stable. Forms are Medication Reconciliation Form, Thank You Letter, Antibiotic Education, Prescription Opioid Use. Follow up: Beua Sanchez; When: 2 - 3 days; Reason: Recheck today's complaints, Continuance of care, Re-evaluation by your physician. Follow up: Mini Reaideei; When: Tomorrow; Reason: Recheck today's complaints, Continuance of care, Re-evaluation by your physician. Problem is new. Symptoms have improved. aicha 11:49 11:25 04/26/2018 11:23 Discharged to Home. Impression: Hematuria; related jl7 conditions, unspecified, second trimester; Hypokalemia. Condition is Stable. Discharge Instructions: Abdominal Pain During , Hematuria, Adult, Pelvic Rest. Prescriptions for Diclegis 10-10 mg Oral tablet,delayed release (DR/EC) - take 1 tablet by ORAL route 3 times per day and 2 tablets at bedtime; 60 tablet, Vitamin 27-0.8 mg Oral Tablet - take 1 tablet by ORAL route once daily; 30 tablet, Tylenol-Codeine #3 300-30 mg Oral Tablet - take 2 tablets by ORAL route every 6 hours As needed; 20 tablet, Macrobid 100 mg Oral Capsule - take 1 capsule by ORAL route every 12 hours for 7 days; 14 capsule. and Forms are Medication Reconciliation Form, Thank You Letter, Antibiotic Education, Prescription Opioid Use. Follow up: Beau Sanchez; When: 2 - 3 days; Reason: Recheck today's complaints, Continuance of care, Re-evaluation by your physician. Follow up: Mini Vicki; When: Tomorrow; Reason: Recheck today's complaints, Continuance of care, Re-evaluation by your physician. Problem is new. Symptoms have improved. aicha
--- NOTE | 2018-04-26 11:24 | ER ---
Nurse's Notes [facility] Name: Jimi Rivera Age: 28 yrs Sex: Female : 1990 Arrival Date: 04/26/2018 Time: 09:05 Bed 16 Private MD: Beau Sanchez Diagnosis: Hematuria; related conditions, unspecified, second trimester;Hypokalemia Presentation: 04/26 09:14 Presenting complaint: Patient states: L flank pain and blood in urine yesterday. Was ss seen in ER and diagnosed with UTI and began taking Macrobid last night. Pt reports that the pain now seems to radiate around towards LLQ and is now vomiting. Pt is also 19 weeks . Transition of care: patient was not received from another setting of care. Onset of symptoms was April 25, 2018. Risk Assessment: Do you want to hurt yourself or someone else? Patient reports no desire to harm self or others. Initial Sepsis Screen: Does the patient meet any 2 criteria? HR > 90 bpm. Does the patient have a suspected source of infection? Yes: Dysuria/Frequency/Urgency/UTI. Care prior to arrival: None. 09:14 Method Of Arrival: Ambulatory ss 09:14 Acuity: JULIO 3 ss Historical: - Allergies: 09:19 NKA; ss - PMHx: 09:19 Kidney stones; Migraines; RSD right leg; ss - PSHx: 09:19 knee scope; shoulder scope; Lithotripsy; ss - Immunization history:: Adult Immunizations up to date. - Social history:: Smoking status: Patient/guardian denies using tobacco. - Ebola Screening: : Patient denies exposure to infectious person Patient denies travel to an Ebola-affected area in the 21 days before illness onset. Screenin:11 Abuse screen: Denies threats or abuse. Denies injuries from another. Nutritional jl7 screening: No deficits noted. Tuberculosis screening: No symptoms or risk factors identified. Fall Risk IV access (20 points). Total Levy Fall Scale indicates No Risk (0-24 pts). Assessment: 09:30 General: Appears in no apparent distress. uncomfortable, Behavior is calm, cooperative, jl7 appropriate for age. Pain: Complains of pain in left flank Pain radiates to left lower quadrant Pain currently is 6 out of 10 on a pain scale. Quality of pain is described as pressure, Pain began 1 day ago. Pt refuses pain medication at this time but will keep it on standby Is continuous. Neuro: Level of Consciousness is awake, alert, obeys commands, Oriented to person, place, time, situation. Cardiovascular: Patient's skin is warm and dry. Respiratory: Airway is patent Respiratory effort is even, unlabored, Respiratory pattern is regular, symmetrical. GI: Abdomen is round non-distended, Bowel sounds present X 4 quads. Reports nausea. : Urine is cloudy. EENT: No signs and/or symptoms were reported regarding the EENT system. Derm: Skin is pink, warm \T\ dry. 10:00 Reassessment: Pt reports decreased nausea. jl7 10:50 Reassessment: Pt reporting increased pain and does want to pain medication. Medicated jl7 as ordered. 11:10 Reassessment: Pt reports decreased pain, rated 2/10 at this time. jl7 Vital Signs: 09:19 BP 115 / 82; Pulse 98; Resp 17; Temp 97.0(TE); Pulse Ox 100% on R/A; Weight 70.31 kg; ss Height 5 ft. 2 in. (157.48 cm); Pain 6/10; 10:45 BP 113 / 75; Pulse 102; Resp 16 S; Pulse Ox 100% on R/A; Pain 8/10; jl7 11:48 BP 115 / 75; Pulse 94; Resp 16; Pulse Ox 100% on R/A; Pain 2/10; jl7 09:19 Body Mass Index 28.35 (70.31 kg, 157.48 cm) Vitals: 11:15 Heart Tones 162. jl7 ED Course: 09:05 Patient arrived in ED. as 09:06 Beau Sanchez MD is Private Physician. as 09:10 Elyse Ramirez RN is Primary Nurse. jl7 09:18 Jordon Kunz MD is Attending Physician. [facility] 09:18 Triage completed. ss 09:19 Arm band placed on right wrist. ss 09:30 Patient has correct armband on for positive identification. Bed in low position. Call jl7 light in reach. Side rails up X 1. Pulse ox on. NIBP on. Warm blanket given. 10:00 Initial lab(s) drawn, by me, sent to lab. Inserted saline lock: 22 gauge in right jl7 antecubital area, using aseptic technique. Blood collected. 10:21 Ultrasound completed. Patient tolerated well. sg3 10:24 US Rp Exam Limited: left renal In Process Unspecified. EDCA 11:22 Beau Sanchez MD is Referral Physician. [facility] 11:22 Emma Weiner MD is Referral Physician. [facility] 11:47 No provider procedures requiring assistance completed. IV discontinued, intact, jl7 bleeding controlled, No redness/swelling at site. Pressure dressing applied. Administered Medications: 09:45 Drug: NS 0.9% 1000 ml Route: IV; Rate: 1 bolus; Site: right antecubital; jl7 10:45 Follow up: IV Status: Completed infusion jl7 09:46 Drug: Zofran 4 mg Route: IVP; Site: right antecubital; jl7 10:11 Follow up: Response: No adverse reaction; Nausea is decreased jl7 10:50 Drug: Rocephin 1 grams Route: IV; Rate: calculated rate; Site: right antecubital; jl7 10:53 Follow up: Response: No adverse reaction; IV Status: Completed infusion jl7 10:55 Drug: morphine 2 mg Route: IVP; Site: right antecubital; jl7 11:03 Follow up: Response: No adverse reaction; Pain is decreased jl7 11:01 Not Given (Other Intervention Used): Rocephin - (cefTRIAXone) 1 grams IVPB once over 30 jl7 mins; (mix in 50 mL NS) 11:47 Drug: Potassium Effervescent Tablet 25 mEq Route: PO; jl7 11:47 Follow up: Response: Medication administered at discharge. jl7 Outcome: 11:23 Discharge ordered by . [facility] 11:47 Discharged to home ambulatory. jl7 11:47 Condition: stable 11:47 Discharge instructions given to patient, Instructed on discharge instructions, follow up and referral plans. medication usage, Demonstrated understanding of instructions, follow-up care, medications, Prescriptions given X 4. 11:49 Patient left the ED. jl7 Signatures: Dispatcher [employer] Jordon Summers MD MD cha Martinez, Amelia as Smirch, Shelby, RN RN Elyse Ramirez RN RN jl7 Vanessa Lamar sg3
[2018-04-26] MEDS ORDERED: POTASSIUM 25 MEQ EFFERV TAB ONE (11:43)
[2018-04-26 11:54] VITALS: TEMP 97; O2SAT 100
[2018-04-26 11:56] VITALS: BP 115/75
[2018-04-26 15:32] LABS: Urine Blood 3+ (NEG); Urine Glucose NEGATIVE (NEG); Urine Protein 1+ (NEG); Urine Specific Gravity 1.025 (1.005-1.030)
== END 2018-04-26 11:49 | disposition home or self-care (01) ==
LOC: ER 09:03
DX: O26.892 Other specified pregnancy related conditions, second trimester (principal); R31.9 Hematuria, unspecified; E87.6 Hypokalemia; Z3A.19 19 weeks gestation of pregnancy
CPT/HCPCS: 36415; 76775; 80048; 81003; 81025; 85025; 87040; 87086; 87088; 96361; 96374; 96375; 99284; J0696; J2270; J2405; J7030